=== PATIENT | female | born 1945 | race Caucasian/White ===

== ENCOUNTER → 2016-06-28 | Outpatient (CLI) | payer MEDICARE, OTHER | END | disposition home or self-care (01) | LOC: GMAM 09:57 | PROVIDERS: ATTEND Family Medicine | DX: D64.9 Anemia, unspecified (principal) ==

== ENCOUNTER → 2016-09-26 | Outpatient (CLI) | payer MEDICARE, OTHER | END | disposition home or self-care (01) | LOC: GMAM 10:44 | PROVIDERS: ATTEND Family Medicine | DX: D64.9 Anemia, unspecified (principal); I10 Essential (primary) hypertension ==

== ENCOUNTER → 2016-10-28 | Outpatient (CLI) | payer MEDICARE, OTHER | LOC: GMAM 13:14 | PROVIDERS: ATTEND Family Medicine | DX: E55.9 Vitamin D deficiency, unspecified (principal); M06.9 Rheumatoid arthritis, unspecified ==

== ENCOUNTER → 2016-11-01 | Outpatient (CLI) | payer MEDICARE, OTHER ==
--- NOTE | 2016-11-01 17:14 | US ---
EXAM DESCRIPTION: Thyroid CLINICAL HISTORY: 71 years Female, THYROID NODULE COMPARISON: None. FINDINGS: Right lobe of the thyroid is 4.3 x 1.8 x 1.4 cm and the left lobe is 4.2 x 1.7 x 1.7 cm. The isthmus is 2 mm in thickness. The thyroid gland is heterogeneous bilaterally with numerous small subcentimeter hypoechoic and isoechoic nodules evident. On the right a hypoechoic heterogeneous wider than tall 10 x 7 x 7 mm nodule is present in the upper pole posteriorly. An isoechoic wider than tall adjacent nodule anteriorly that is mildly heterogeneous measures 8 x 8 x 6 mm. Numerous smaller nodules are present and too small to fully characterize. On the left, a hypoechoic heterogeneous wider than tall 1.1 x 0.8 x 0.7 cm nodule is present posteriorly in the mid thyroid. Just inferior to this nodule is a wider than tall oval 1.0 x 0.7 x 0.6 cm heterogeneous nodule. Again numerous smaller subcentimeter nodules are scattered within the left lobe. The more superior lesion measuring 1.1 cm in maximal diameter demonstrates several punctate echogenic foci that may represent early microcalcifications. Fine-needle aspiration of this lesion should be considered. IMPRESSION: 1. The nodular gland with innumerable smaller less than 1 cm nodules with two dominant nodules in each lobe, in the upper pole on the right in the posterior mid pole on the left. 2. The most suspicious nodule is 1.1 cm in maximal length posteriorly in the left lobe with questionable small microcalcifications within the lesion. Fine-needle aspiration of this lesion should be considered. Electronically signed by: Guero Mendoza MD 11/01/2016 5:13 PM CDT
== END | disposition home or self-care (01) ==
LOC: US 09:18
PROVIDERS: ATTEND Family Medicine
DX: E04.1 Nontoxic single thyroid nodule (principal)

== ENCOUNTER → 2016-11-03 | Outpatient (CLI) | payer MEDICARE, OTHER | END | disposition home or self-care (01) | LOC: GMAM 14:17 | PROVIDERS: ATTEND Family Medicine | DX: R74.8 Abnormal levels of other serum enzymes (principal); R79.9 Abnormal finding of blood chemistry, unspecified; E04.8 Other specified nontoxic goiter; R22.9 Localized swelling, mass and lump, unspecified ==

== ENCOUNTER 2017-02-01 15:01 | Emergency (ER) | payer MEDICARE, OTHER ==
[~2017-02-01 15:01] MED LIST: LIDOCAINE 1% 10 ML VIAL INJ ONE; PROPOFOL 200 MG/20 ML VIAL IV ONE
--- NOTE | 2017-02-01 17:12 | ED.PDOC ---
History of Present Illness - General Chief Complaint: Lower Extremity Injury Stated Complaint: right hip pain Time Seen by Provider: 02/01/17 17:11 Source: patient Exam Limitations: no limitations - History of Present Illness Initial Comments: Cathi Osborn 71 y/o female stated that she had had right [place] 1 [place] and had been popping out of place several times sometimes she is able to put it back but today could not put back in place.No history of fall. Occurred: this afternoon Pain - Lower Extremity: moderate: Right Thigh/Hip Method of Injury: other - no injury Improving Factors: nothing Worsening Factors: nothing Allergies/Adverse Reactions: Allergies NO KNOWN ALLERGY Allergy (Verified 02/01/17 15:43) Home Medications: Ambulatory Orders Albuterol Sulfate Nebs [Proventil Nebs] 2.5 mg INH QID 03/21/15 Albuterol Sulfate [Proair Hfa] 2 inh IN QID 03/21/15 Aspirin [Aspirin Adult Low Dose] 81 mg PO .,,SA 03/21/15 Calcium Carbonate-Cholecalcife [Calcium 600+D3 600-800 mg-Unit] 1 tab PO BID Celecoxib 200 mg PO BID 03/21/15 Cholecalciferol [Vitamin D3] 1,000 unit PO BID 03/21/15 DULoxetine HCL [Cymbalta] 30 mg PO DAILY 03/21/15 Diclofenac Sodium (Topical) [Diclofenac Sodium] 2 - 4 ml TD QID 03/21/15 Fluticasone/Salmeterol 250/50 [Advair Diskus] 1 puff INH BID 03/21/15 Folic Acid,B6,B12 [FOLTX] 1 ea PO BID 03/21/15 HYDROcodone 10MG/APAP 325MG [[place] 10/325] 1 tab PO Q4H PRN 03/21/15 Hydroxychloroquine [Plaquenil] 200 mg PO BID 03/21/15 Leflunomide 10 mg PO DAILY 03/21/15 Lidocaine 5 % EX QID 03/21/15 Lubiprostone [Amitiza] 8 mcg PO BID 03/21/15 Wrens-3 Fatty Acids [Fish Oil] 1,200 mg PO BID 03/21/15 Omeprazole 20 mg PO BID 03/21/15 Prednisone 5 mg PO DAILY 03/21/15 Telmisartan [Micardis] 20 mg PO .M,W,F 03/21/15 Acetaminophen W/ Codeine [Tylenol w/Codeine 300-30 mg] 1 - 2 tab PO Q6HR PRN # 30 tab 10/26/15 Review of Systems - Review of Systems Constitutional: States: no symptoms reported EENTM: States: no symptoms reported Respiratory: States: no symptoms reported Cardiology: States: no symptoms reported Gastrointestinal/Abdominal: States: no symptoms reported Genitourinary: States: no symptoms reported Musculoskeletal: States: see HPI Skin: States: no symptoms reported Neurological: States: no symptoms reported Past Medical History (General) - Patient Medical History Hx Seizures: No Hx Stroke: No Hx Dementia: No Hx Asthma: Yes Hx of COPD: No Hx Cardiac Disorders: No Hx Congestive Heart Failure: No Hx Pacemaker: No Hx Hypertension: Yes Hx Thyroid Disease: No Hx Diabetes: No Hx Gastroesophageal Reflux: Yes Hx Renal Disease: No Hx Cancer: No Hx of HIV: No Hx Hepatitis C: No Hx MRSA: No Surgical History: appendectomy, other - right hip,hysterectomy - Vaccination History Hx Tetanus, Diphtheria Vaccination: No Hx Influenza Vaccination: Yes Hx Pneumococcal Vaccination: Yes - Social History Hx Tobacco Use: No Hx Chewing Tobacco Use: No Hx Alcohol Use: Yes - occasional Hx Substance Use: No Hx Substance Use Treatment: No Hx Depression: No Hx Physical Abuse: No Hx Emotional Abuse: No Hx Suspected Abuse: No - Female History Patient is a Female of Child Bearing Age (10 -59 yrs old): No Patient : No Family Medical History - Family History Mother Family History: Unknown Living Status: Unknown Physical Exam - Physical Exam General Appearance: Alert, Anxious, No apparent distress Eyes, Ears, Nose, Throat: PERRL/EOMI, normal ENT inspection Neck: non-tender, supple Cardiovascular/Respiratory: regular rate, rhythm, no M/R/G, normal peripheral pulses Gastrointestinal/Abdominal: non-tender, no organomegaly Back: normal inspection, no CVA tenderness, no vertebral tenderness Thigh/Hip: soft tissue tenderness - right hip Leg: normal inspection, no evidence of injury Knee: normal inspection, no evidence of injury Ankle: normal inspection, no evidence of injury Foot: normal inspection, no evidence of injury Neuro/Tendon: normal sensation, normal motor functions, other - vascular intact dorsalis pedis bilaterally Mental Status: alert, oriented x 3 Skin: normal color, warm/dry Progress - Progress Progress: 02/01/17 20:51 Last Vital Signs Temp 98.3 F 02/01/17 18:01 Pulse 70 02/01/17 18:01 Resp 20 02/01/17 18:01 BP 124/61 02/01/17 18:01 Pulse Ox 97 02/01/17 18:01 - EKG/XRAY/CT XRAY: hip - dislocated hip prosthesis Procedures - Joint Reduction hip Conscious Sedation: Yes - done by [employer] ENGINEER Reduction Attempts: 3 Pre-Procedure NV Exam: Yes - neurovascular intact Post Joint Reduction Film: joint reduced Departure - Departure Clinical Impression: Pain of right hip joint Dislocation of hip prosthesis Qualifiers: Encounter type: initial encounter Qualified Code(s): T84.029A - Dislocation of unspecified internal joint prosthesis, initial encounter; Z96.649 - Presence of unspecified artificial hip joint Time of Disposition: 20:56 Disposition: Discharge to Home or Self Care Condition: Good Departure Forms: ED Discharge - Pt. Copy, Patient Portal Self Enrollment Referrals: Guero Chandra MD [Primary Care Provider] - 1-2 Weeks Home Medications: Ambulatory Orders Albuterol Sulfate Nebs [Proventil Nebs] 2.5 mg INH QID 03/21/15 Albuterol Sulfate [Proair Hfa] 2 inh IN QID 03/21/15 Aspirin [Aspirin Adult Low Dose] 81 mg PO .,,SA 03/21/15 Calcium Carbonate-Cholecalcife [Calcium 600+D3 600-800 mg-Unit] 1 tab PO BID Celecoxib 200 mg PO BID 03/21/15 Cholecalciferol [Vitamin D3] 1,000 unit PO BID 03/21/15 DULoxetine HCL [Cymbalta] 30 mg PO DAILY 03/21/15 Diclofenac Sodium (Topical) [Diclofenac Sodium] 2 - 4 ml TD QID 03/21/15 Fluticasone/Salmeterol 250/50 [Advair Diskus] 1 puff INH BID 03/21/15 Folic Acid,B6,B12 [FOLTX] 1 ea PO BID 03/21/15 HYDROcodone 10MG/APAP 325MG [[place] 10/325] 1 tab PO Q4H PRN 03/21/15 Hydroxychloroquine [Plaquenil] 200 mg PO BID 03/21/15 Leflunomide 10 mg PO DAILY 03/21/15 Lidocaine 5 % EX QID 03/21/15 Lubiprostone [Amitiza] 8 mcg PO BID 03/21/15 Wrens-3 Fatty Acids [Fish Oil] 1,200 mg PO BID 03/21/15 Omeprazole 20 mg PO BID 03/21/15 Prednisone 5 mg PO DAILY 03/21/15 Telmisartan [Micardis] 20 mg PO .M,W,F 03/21/15 Acetaminophen W/ Codeine [Tylenol w/Codeine 300-30 mg] 1 - 2 tab PO Q6HR PRN # 30 tab 10/26/15 Additional Instructions: FOLLOW UP WITH ORTHOPEDIST in [place]
[2017-02-01 18:14] VITALS: TEMP 98.3
--- NOTE | 2017-02-01 18:23 | RAD ---
EXAM DESCRIPTION: Pelvis,2 or More Views CLINICAL HISTORY: pain/unable to ambulate COMPARISON: None FINDINGS: 2 views were submitted. Prosthetic right hip is present. There is a right hip dislocation. Spinal surgical hardware appears intact. There is a probable comminuted fracture of the left superior pubic ramus but it is not particularly well seen. IMPRESSION: Right prosthetic hip dislocation. Left superior pubic ramus probable comminuted fracture. Electronically signed by: Matthew Rowland 02/01/2017 6:21 PM [facility]
[2017-02-01] MEDS ORDERED: fentaNYL CITRATE INJ 50 MCG/ML AMP ONE (19:33)
[2017-02-01] MEDS ORDERED: fentaNYL CITRATE INJ 50 MCG/ML AMP IV ONE (19:37)
--- NOTE | 2017-02-01 20:28 | RAD ---
EXAM DESCRIPTION: Hip,Right 2 Views CLINICAL HISTORY: 71 years Female post reduction COMPARISON: 02/01/2017. TECHNIQUE: RIGHT hip, two views FINDINGS: There is persistent dislocation of the right hip prosthesis with superior and lateral displacement of the femoral component. IMPRESSION: Persistent dislocation of the right hip prosthesis Electronically signed by: Marii Medel 02/01/2017 8:26 PM [facility]
--- NOTE | 2017-02-01 20:44 | RAD ---
EXAM DESCRIPTION: Hip,Right 2 Views CLINICAL HISTORY: 71 years Female post reduction COMPARISON: Films earlier the same day. TECHNIQUE: RIGHT hip, two views FINDINGS: There has been interval relocation of the right hip prosthesis. There is anatomic alignment in the frog leg and AP views. Heterotopic bone formation along the hip. No evidence of fracture. IMPRESSION: Interval relocation of the right hip prosthesis Electronically signed by: Marii Medel 02/01/2017 8:43 PM [facility]
[2017-02-01 21:28] VITALS: BP 129/71; O2SAT 98
== END 2017-02-01 21:28 | disposition home or self-care (01) ==
LOC: ER 15:01
DX: T84.020A Dislocation of internal right hip prosthesis, initial encounter (principal); I10 Essential (primary) hypertension; K21.9 Gastro-esophageal reflux disease without esophagitis; Z79.82 Long term (current) use of aspirin; Z79.899 Other long term (current) drug therapy
CPT/HCPCS: 72190; 73502; 99156; J3010; J3490

== ENCOUNTER 2017-05-14 18:39 | Emergency (ER) | payer MEDICARE, OTHER ==
[2017-05-14] MEDS ORDERED: SODIUM CHLORIDE 0.9% 1000ML 1,000 ML ONE (19:18)
--- NOTE | 2017-05-14 19:24 | RAD ---
EXAM DESCRIPTION: Hip,Right 2 Views CLINICAL HISTORY: 71 years Female pain COMPARISON: 02/01/2017. TECHNIQUE: RIGHT hip, two views FINDINGS: Total hip prosthesis on the right. There is dislocation of the femoral component from the acetabular component. Femoral component is displaced laterally and superiorly. No obvious fracture is noted on the images provided. Exam is limited by body habitus. IMPRESSION: Dislocation of the hip prosthesis Electronically signed by: Marii Medel MD 05/14/2017 7:21 PM CDT
--- NOTE | 2017-05-14 19:33 | ED.PDOC ---
History of Present Illness - General Chief Complaint: Lower Extremity Injury Stated Complaint: hip pain Time Seen by Provider: 05/14/17 18:56 Source: patient Exam Limitations: no limitations Additional Information: PT STATES HER HIP HAS DISLOCATED. HAS HAPPENED BEFORE. THINKS SHE "TWISTED WRONG " WHILE TAKING OUT THE TRASH. C/O PAIN AND DEFORMITY TO R HIP. - History of Present Illness Occurred: just prior to arrival Pain - Lower Extremity: moderate: Right Thigh/Hip Improving Factors: nothing Worsening Factors: movement Associated Symptoms: DID NOT FALL, NO C/O OF INJURY OR LOC. Allergies/Adverse Reactions: Allergies NO KNOWN ALLERGY Allergy (Verified 05/14/17 18:51) Home Medications: Ambulatory Orders Albuterol Sulfate Nebs [Proventil Nebs] 2.5 mg INH QID 03/21/15 Albuterol Sulfate [Proair Hfa] 2 inh IN QID 03/21/15 Aspirin [Aspirin Adult Low Dose] 81 mg PO .,,SA 03/21/15 Calcium Carbonate-Cholecalcife [Calcium 600+D3 600-800 mg-Unit] 1 tab PO BID Celecoxib 200 mg PO BID 03/21/15 Cholecalciferol [Vitamin D3] 1,000 unit PO BID 03/21/15 DULoxetine HCL [Cymbalta] 30 mg PO DAILY 03/21/15 Diclofenac Sodium (Topical) [Diclofenac Sodium] 2 - 4 ml TD QID 03/21/15 Fluticasone/Salmeterol 250/50 [Advair Diskus] 1 puff INH BID 03/21/15 Folic Acid,B6,B12 [FOLTX] 1 ea PO BID 03/21/15 HYDROcodone 10MG/APAP 325MG [[place] 10/325] 1 tab PO Q4H PRN 03/21/15 Hydroxychloroquine [Plaquenil] 200 mg PO BID 03/21/15 Leflunomide 10 mg PO DAILY 03/21/15 Lidocaine 5 % EX QID 03/21/15 Lubiprostone [Amitiza] 8 mcg PO BID 03/21/15 [place]-3 Fatty Acids [Fish Oil] 1,200 mg PO BID 03/21/15 Omeprazole 20 mg PO BID 03/21/15 Prednisone 5 mg PO DAILY 03/21/15 Telmisartan [Micardis] 20 mg PO .M,W,F 03/21/15 Acetaminophen W/ Codeine [Tylenol w/Codeine 300-30 mg] 1 - 2 tab PO Q6HR PRN # 30 tab 10/26/15 Review of Systems - Review of Systems Constitutional: Denies: chills, fever EENTM: States: no symptoms reported Musculoskeletal: States: joint pain Skin: States: no symptoms reported Neurological: States: no symptoms reported Past Medical History (General) - Patient Medical History Hx Seizures: No Hx Stroke: No Hx Dementia: No Hx Asthma: Yes Hx of COPD: No Hx Cardiac Disorders: No Hx Congestive Heart Failure: No Hx Pacemaker: No Hx Hypertension: Yes Hx Thyroid Disease: No Hx Diabetes: No Hx Gastroesophageal Reflux: Yes Hx Renal Disease: No Hx Cancer: No Hx of HIV: No Hx Hepatitis C: No Hx MRSA: No Surgical History: appendectomy, other - Vaccination History Hx Tetanus, Diphtheria Vaccination: No Hx Influenza Vaccination: Yes Hx Pneumococcal Vaccination: Yes - Social History Hx Tobacco Use: No Hx Chewing Tobacco Use: No Hx Alcohol Use: Yes - occasional Hx Substance Use: No Hx Substance Use Treatment: No Hx Depression: No Hx Physical Abuse: No Hx Emotional Abuse: No Hx Suspected Abuse: No - Female History Patient : No Family Medical History - Family History Mother Family History: Unknown Living Status: Unknown Physical Exam - Physical Exam General Appearance: Alert, No apparent distress Eyes, Ears, Nose, Throat: PERRL/EOMI, other - HEAD NC/AT Neck: non-tender, full range of motion, normal inspection Cardiovascular/Respiratory: regular rate, rhythm, no M/R/G Gastrointestinal/Abdominal: non-tender, no organomegaly Back: no CVA tenderness, no vertebral tenderness Thigh/Hip: other - R LEG SHORTENED. NVI, TTP R HIP, Neuro/Tendon: normal sensation, normal motor functions Mental Status: alert, oriented x 3 Skin: normal color Progress - Progress Progress: 05/14/17 19:34 [facility] CALLED FOR CONSCIOUS SEDATION 1914. STATES WILL BE HERE 192905/14/17 20:48 CALLED ORTHO 05/14/17 21:01 D/W DR DUDLEY. OK TO F/U OUTPT CALL DR VILLAREAL IN AM. - EKG/XRAY/CT XRAY: PELVIS: SUCCESSFUL REDUCTION - DISLOCATION Procedures - Joint Reduction right hip Reduction Attempts: 1 Pre-Procedure NV Exam: Yes Post Joint Reduction Film: joint reduced Progress: NVI POST REDUCTION Departure - Departure Clinical Impression: Dislocation, hip closed Qualifiers: Encounter type: initial encounter Laterality: right Qualified Code(s): S73.004A - Unspecified dislocation of right hip, initial encounter Time of Disposition: 21:02 Disposition: Discharge to Home or Self Care Condition: Good Departure Forms: ED Discharge - Pt. Copy, Patient Portal Self Enrollment Instructions: DI for Leg Pain, DI for Hip Dislocation -- Adult Referrals: Guero Chandra MD [Primary Care Provider] - 1-2 Weeks Home Medications: Ambulatory Orders Albuterol Sulfate Nebs [Proventil Nebs] 2.5 mg INH QID 03/21/15 Albuterol Sulfate [Proair Hfa] 2 inh IN QID 03/21/15 Aspirin [Aspirin Adult Low Dose] 81 mg PO .,,SA 03/21/15 Calcium Carbonate-Cholecalcife [Calcium 600+D3 600-800 mg-Unit] 1 tab PO BID Celecoxib 200 mg PO BID 03/21/15 Cholecalciferol [Vitamin D3] 1,000 unit PO BID 03/21/15 DULoxetine HCL [Cymbalta] 30 mg PO DAILY 03/21/15 Diclofenac Sodium (Topical) [Diclofenac Sodium] 2 - 4 ml TD QID 03/21/15 Fluticasone/Salmeterol 250/50 [Advair Diskus] 1 puff INH BID 03/21/15 Folic Acid,B6,B12 [FOLTX] 1 ea PO BID 03/21/15 HYDROcodone 10MG/APAP 325MG [[place] 10/325] 1 tab PO Q4H PRN 03/21/15 Hydroxychloroquine [Plaquenil] 200 mg PO BID 03/21/15 Leflunomide 10 mg PO DAILY 03/21/15 Lidocaine 5 % EX QID 03/21/15 Lubiprostone [Amitiza] 8 mcg PO BID 03/21/15 [place]-3 Fatty Acids [Fish Oil] 1,200 mg PO BID 03/21/15 Omeprazole 20 mg PO BID 03/21/15 Prednisone 5 mg PO DAILY 03/21/15 Telmisartan [Micardis] 20 mg PO .M,W,F 03/21/15 Acetaminophen W/ Codeine [Tylenol w/Codeine 300-30 mg] 1 - 2 tab PO Q6HR PRN # 30 tab 10/26/15
[2017-05-14] MEDS ORDERED: KETAMINE HCL 100 MG/ML VIAL ONE (19:38)
[2017-05-14] MEDS ORDERED: MIDAZOLAM INJ 5 MG/5 ML VIAL ONE (20:04)
--- NOTE | 2017-05-14 20:41 | RAD ---
EXAM DESCRIPTION: Hip,Right 2 Views CLINICAL HISTORY: 71 years Female POST REDUCTION COMPARISON: 05/14/2017. TECHNIQUE: RIGHT hip, two views FINDINGS: There has been interval relocation of the right hip prosthesis. Alignment is anatomic. IMPRESSION: Interval relocation of the right hip prosthesis Electronically signed by: Marii Medel MD 05/14/2017 8:39 PM CDT
--- NOTE | 2017-05-14 20:52 | RAD ---
Pelvis single view on 05/14/2017 CLINICAL INDICATION: Postreduction COMPARISON: Right hip exams from earlier the same day and prior pelvis exam from 02/01/2017 FINDINGS: There has been successful reduction of the prior right hip prosthesis dislocation. The patient is status post a right total hip arthroplasty. Heterotopic ossification is noted adjacent to the right greater trochanter. Extensive postsurgical changes are noted in the lower lumbar spine. The left hip is well located. The SI joints are well aligned. There are no fractures. IMPRESSION: No acute abnormality now noted. Electronically signed by: David Yin 05/14/2017 8:50 PM CDT
[2017-05-14] MEDS ORDERED: GLYCOPYRROLATE 0.2 MG/ML VIAL IV ONE (21:00)
[2017-05-14 21:53] VITALS: BP 101/59; TEMP 98.2; O2SAT 99
== END 2017-05-14 21:52 | disposition home or self-care (01) ==
LOC: ER 18:39
DX: S73.004A Unspecified dislocation of right hip, initial encounter (principal); I10 Essential (primary) hypertension; K21.9 Gastro-esophageal reflux disease without esophagitis; J45.909 Unspecified asthma, uncomplicated; Z79.82 Long term (current) use of aspirin; Z79.899 Other long term (current) drug therapy; X58.XXXA Exposure to other specified factors, initial encounter
CPT/HCPCS: 72170; 73502; 99156; J2250; J7030

== ENCOUNTER → 2017-05-25 | Outpatient (CLI) | payer MEDICARE, OTHER | END | disposition home or self-care (01) | LOC: GMAM 14:13 | PROVIDERS: ATTEND Family Medicine | DX: D64.9 Anemia, unspecified (principal) ==

== ENCOUNTER → 2017-05-31 | Outpatient (CLI) | payer MEDICARE, OTHER ==
--- NOTE | 2017-06-01 07:14 | US ---
EXAM DESCRIPTION: Liver CLINICAL HISTORY: ELEVATED LFTs COMPARISON: None available. FINDINGS: Aorta: Nonaneurysmal. IVC: Visualized portions normal. Ascites: None. Pancreas: Partially obscured by overlying bowel gas but visualized portions normal. Liver: The liver is not enlarged. Physiologic flow is noted in the main portal vein. There is a 3 cm uncomplicated cyst in the left hepatic lobe, but no concerning liver mass is identified. No intrahepatic biliary duct dilation. Gallbladder/Common Duct: No stones, wall thickening, pericholecystic fluid or common duct dilation. Right Kidney: No stones, hydronephrosis, atrophy or mass. IMPRESSION: 3 cm uncomplicated cyst in the left hepatic lobe, no additional abnormality to explain elevated LFTs. Electronically signed by: Nishant Funk MD 06/01/2017 7:13 AM CDT
== END ==
LOC: US 13:24
PROVIDERS: ATTEND Family Medicine
DX: N39.0 Urinary tract infection, site not specified (principal); R94.5 Abnormal results of liver function studies

== ENCOUNTER → 2017-11-21 | Outpatient (CLI) | payer MEDICARE, OTHER | LOC: GMAM 11:01 | PROVIDERS: ATTEND Family Medicine | DX: N39.0 Urinary tract infection, site not specified (principal); D64.9 Anemia, unspecified ==

== ENCOUNTER → 2017-11-28 | Outpatient (CLI) | payer MEDICARE, OTHER | LOC: GMAM 16:36 | PROVIDERS: ATTEND Family Medicine | DX: M06.9 Rheumatoid arthritis, unspecified (principal) ==

== ENCOUNTER 2018-04-16 02:30 | Emergency (ER) | payer MEDICARE, OTHER ==
[2018-04-16 02:49] VITALS: TEMP 97.2
--- NOTE | 2018-04-16 03:38 | RAD ---
CLINICAL HISTORY: possible dislocation, had shoulder replacement COMPARISON: July 20, 2015. TECHNIQUE: XR SHOULDER 2 OR MORE VIEWS 04/16/2018 2:40 AM [facility] FINDINGS: There is no fracture. Total right shoulder arthroplasty was performed. Soft tissues are unremarkable. IMPRESSION: No acute osseous findings. Electronically signed by: Jr Mitchell MD 04/16/2018 3:35 AM [facility]
--- NOTE | 2018-04-16 05:12 | CT ---
EXAM DESCRIPTION: Upper Extremity CLINICAL HISTORY:72 years Female, pain; asymmetry right shoulder Comparison: None TECHNIQUE: Contiguous axial CT images of the right shoulder were obtained. Sagittal and coronal reformats were reviewed. This exam was performed according to our departmental dose-optimization program, which includes automated exposure control, adjustment of the mA and/or kV according to patient size and/or use of iterative reconstruction technique. FINDINGS: Limited exam due to streak artifact from shoulder arthroplasty and patient movement. No obvious fracture or dislocation. Visualized lung almeida are clear. IMPRESSION: No acute osseous abnormalities. Electronically signed by: Richie Summers DO 04/16/2018 5:09 AM [facility]
--- NOTE | 2018-04-16 05:17 | ED.PDOC ---
History of Present Illness - General Chief Complaint: Upper Extremity Injury Stated Complaint: rt shoulder pain Time Seen by Provider: 04/16/18 03:47 Source: patient, RN notes reviewed, Vital Signs reviewed Exam Limitations: no limitations - History of Present Illness Initial Comments: C/O RIGHT SHOULDER PAIN. fIRST NOTED IN THE SHOWER LAST NIGHT A SHARP PAIN. lATER AWOKE & IT Was hurting worse. Her usual ROM was limited due to the pain & the alignment felt abnormal. Of note she had been able to sleep on her right side before awakening. Occurred: this evening Pain - Upper Extremity: mild: Shoulder, right Method of Injury: unknown Improving Factors: rest Worsening Factors: movement Associated Symptoms: none Allergies/Adverse Reactions: Allergies NO KNOWN ALLERGY Allergy (Verified 04/16/18 02:49) Home Medications: Ambulatory Orders Albuterol Sulfate Nebs [Proventil Nebs] 2.5 mg INH QID 03/21/15 Albuterol Sulfate [Proair Hfa] 2 inh IN QID 03/21/15 Aspirin [Aspirin Adult Low Dose] 81 mg PO .,,SA 03/21/15 Calcium Carbonate-Cholecalcife [Calcium 600+D3 600-800 mg-Unit] 1 tab PO BID 03/21/15 Celecoxib 200 mg PO BID 03/21/15 Cholecalciferol [Vitamin D3] 1,000 unit PO BID 03/21/15 DULoxetine HCL [Cymbalta] 30 mg PO DAILY 03/21/15 Diclofenac Sodium (Topical) [Diclofenac Sodium] 2 - 4 ml TD QID 03/21/15 Fluticasone/Salmeterol 250/50 [Advair Diskus] 1 puff INH BID 03/21/15 Folic Acid,B6,B12 [FOLTX] 1 ea PO BID 03/21/15 HYDROcodone 10MG/APAP 325MG [[place] 10/325] 1 tab PO Q4H PRN 03/21/15 Hydroxychloroquine [Plaquenil] 200 mg PO BID 03/21/15 Leflunomide 10 mg PO DAILY 03/21/15 Lidocaine 5 % EX QID 03/21/15 Lubiprostone [Amitiza] 8 mcg PO BID 03/21/15 Traphill-3 Fatty Acids [Fish Oil] 1,200 mg PO BID 03/21/15 Omeprazole 20 mg PO BID 03/21/15 Prednisone 5 mg PO DAILY 03/21/15 Telmisartan [Micardis] 20 mg PO .M,W,F 03/21/15 Acetaminophen W/ Codeine [Tylenol w/Codeine 300-30 mg] 1 - 2 tab PO Q6HR PRN #30 tab 10/26/15 Review of Systems - Review of Systems Constitutional: States: no symptoms reported Respiratory: States: no symptoms reported Cardiology: States: no symptoms reported Gastrointestinal/Abdominal: States: no symptoms reported Musculoskeletal: States: see HPI Skin: States: no symptoms reported Neurological: States: no symptoms reported Past Medical History (General) - Patient Medical History Hx Seizures: No Hx Stroke: No Hx Dementia: No Hx Asthma: Yes Hx of COPD: No Hx Cardiac Disorders: No Hx Congestive Heart Failure: No Hx Pacemaker: No Hx Hypertension: Yes Hx Thyroid Disease: No Hx Diabetes: No Hx Gastroesophageal Reflux: Yes Hx Renal Disease: No Hx Cancer: No Hx of HIV: No Hx Hepatitis C: No Hx MRSA: No Surgical History: other - Vaccination History Hx Tetanus, Diphtheria Vaccination: No Hx Influenza Vaccination: Yes Hx Pneumococcal Vaccination: Yes - Social History Hx Tobacco Use: No Hx Chewing Tobacco Use: No Hx Alcohol Use: Yes - occasional Hx Substance Use: No Hx Substance Use Treatment: No Hx Depression: No Hx Physical Abuse: No Hx Emotional Abuse: No Hx Suspected Abuse: No - Female History Patient : No Family Medical History - Family History Mother Family History: Unknown Living Status: Unknown Physical Exam - Physical Exam General Appearance: Alert, Comfortable, No apparent distress Neck: full range of motion, supple, normal inspection Cardiovascular/Respiratory: no respiratory distress Back Exam: normal inspection, no vertebral tenderness Shoulder Exam: limited ROM, soft tissue tenderness, swelling - the right shoulder has anterior fullness that is slightly tender. She was noted to push up on the bed using her right arm. She has limited ROM but some is present in all spheres. Elbow/Forearm Exam: normal inspection, non-tender, no evidence of injury, normal ROM Wrist Exam: normal inspection, no evidence of injury, normal ROM Neuro/Tendon: normal sensation, normal motor functions, normal tendon functions, responds to pain Mental Status: alert, oriented x 3 Skin Exam: normal color, warm/dry Progress - Progress Progress: 04/16/18 05:22 Unchanged ASSESSMENT: 72 yo female with a h/o of total right shoulder replacement presents with right shoulder pain, painful ROM & feeling of misalignment. Her exam showed asymmetry & limited ROM due to pain. Her XR & CT were nml. She has an orthopedist to f/u with. Of note, she has been on Cipro recently (discontinued) & has a remote h/o fluoroquinolone induced tendon rupture in her foot. I see no evidence of tendon rupture but have offered a sling which she declines. PLAN: 1. Discharge 2. Ortho f/u tomorrow. 3. Precautions re: potential for tendonopathy - EKG/XRAY/CT XRAY: right shoulder nml CT Ordered: Yes - no acute findings Departure - Departure Clinical Impression: Shoulder pain, right Qualifiers: Chronicity: acute Qualified Code(s): M25.511 - Pain in right shoulder Time of Disposition: 05:26 Disposition: Discharge to Home or Self Care Condition: Good Departure Forms: ED Discharge - Pt. Copy, Patient Portal Self Enrollment Referrals: Guero Chandra MD [Primary Care Provider] - 1-2 Days (call your orthopedist later today) Home Medications: Ambulatory Orders Albuterol Sulfate Nebs [Proventil Nebs] 2.5 mg INH QID 03/21/15 Albuterol Sulfate [Proair Hfa] 2 inh IN QID 03/21/15 Aspirin [Aspirin Adult Low Dose] 81 mg PO .,03/21/15 Calcium Carbonate-Cholecalcife [Calcium 600+D3 600-800 mg-Unit] 1 tab PO BID 03/21/15 Celecoxib 200 mg PO BID 03/21/15 Cholecalciferol [Vitamin D3] 1,000 unit PO BID 03/21/15 DULoxetine HCL [Cymbalta] 30 mg PO DAILY 03/21/15 Diclofenac Sodium (Topical) [Diclofenac Sodium] 2 - 4 ml TD QID 03/21/15 Fluticasone/Salmeterol 250/50 [Advair Diskus] 1 puff INH BID 03/21/15 Folic Acid,B6,B12 [FOLTX] 1 ea PO BID 03/21/15 HYDROcodone 10MG/APAP 325MG [[place] 10/325] 1 tab PO Q4H PRN 03/21/15 Hydroxychloroquine [Plaquenil] 200 mg PO BID 03/21/15 Leflunomide 10 mg PO DAILY 03/21/15 Lidocaine 5 % EX QID 03/21/15 Lubiprostone [Amitiza] 8 mcg PO BID 03/21/15 Traphill-3 Fatty Acids [Fish Oil] 1,200 mg PO BID 03/21/15 Omeprazole 20 mg PO BID 03/21/15 Prednisone 5 mg PO DAILY 03/21/15 Telmisartan [Micardis] 20 mg PO .M,W,F 03/21/15 Acetaminophen W/ Codeine [Tylenol w/Codeine 300-30 mg] 1 - 2 tab PO Q6HR PRN #30 tab 10/26/15
[2018-04-16 05:48] VITALS: BP 142/86; O2SAT 97
== END 2018-04-16 05:48 | disposition home or self-care (01) ==
LOC: ER 02:30
DX: M25.511 Pain in right shoulder (principal); Z96.611 Presence of right artificial shoulder joint; I10 Essential (primary) hypertension; J45.909 Unspecified asthma, uncomplicated; K21.9 Gastro-esophageal reflux disease without esophagitis; Z79.899 Other long term (current) drug therapy; Z79.82 Long term (current) use of aspirin

== ENCOUNTER → 2018-04-25 | Outpatient (CLI) | payer MEDICARE, OTHER ==
--- NOTE | 2018-04-25 15:41 | US ---
EXAM DESCRIPTION: Soft Tissue,Extremity: ULTRASOUND. CLINICAL HISTORY: 72 years Female RT SHOULDER PAIN M25.511 COMPARISON: None Available. TECHNIQUE: Transcutaneous scanning: Almanzar-scale and Doppler modes. FINDINGS: Mixed echogenic mass in the anterior right shoulder. This is between the muscle and the subcutaneous fascia and contains septations. Minimal vascularity on the inferior aspect. Dimensions are 6.8 x 1.4 x 3.9 cm. Surrounded by parenchymal edema and also parenchymal edema in the subcutaneous adipose tissue. No dominant fluid collection or large calcifications.. IMPRESSION: Most likely hematoma in the tissue layer between the subcutaneous fascia and the muscle. Maximum dimensions 6.8 cm. Minimal vascularity on the inferior aspect. No large fluid collection. Electronically signed by: Matthew Cervantes MD 04/25/2018 3:38 PM [employer]
== END ==
LOC: US 11:12
PROVIDERS: ATTEND Physician Assistant
DX: M25.519 Pain in unspecified shoulder (principal); M79.89 Other specified soft tissue disorders

== ENCOUNTER → 2018-09-12 | Outpatient (CLI) | payer MEDICARE, OTHER | LOC: GMAM 14:18 | PROVIDERS: ATTEND Family Medicine | DX: E53.8 Deficiency of other specified B group vitamins (principal); E04.1 Nontoxic single thyroid nodule; I10 Essential (primary) hypertension ==

== ENCOUNTER → 2018-09-26 | Outpatient (CLI) | payer MEDICARE, OTHER | LOC: GMAM 14:47 | PROVIDERS: ATTEND Family Medicine | DX: E83.52 Hypercalcemia (principal); J45.20 Mild intermittent asthma, uncomplicated ==

== ENCOUNTER → 2018-11-20 | Outpatient (CLI) | payer MEDICARE, OTHER ==
--- NOTE | 2018-11-22 07:05 | MRI ---
Study: MRI left wrist. Indication: LEFT WRIST PAIN Technique: Multiplanar, multi sequence MRI of the left wrist obtained without intravenous contrast. Comparison: None. 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 Moderate size joint effusion with 7 mm loose body along the ulnar joint line. Mild osteoarthritis STT joint, scapholunate joint, distal radioulnar joint. Tiny radiocarpal, midcarpal, and distal radioulnar joint effusions. Scapholunate ligament ill-defined with suspected partial-thickness tearing. Scapholunate interval measures 3 mm. Lunotriquetral ligament intact. Central substance TFC is thin with degenerative signal but without full-thickness tear. Ulnar variance neutral. Type II lunate. No acute fracture. Tenosynovitis of the first extensor tendon compartment suspected with mild ganglionic like formation adjacent to the first CMC joint. No appreciable tendon tear. Median nerve, ulnar nerve are unremarkable. Impression: Scattered osteoarthritic changes of the wrist, most pronounced at the first CMC joint where there are severe changes as detailed above. Partial-thickness tearing scapholunate ligament. Attenuation and degenerative signal TFC. Tenosynovitis tendons of the first extensor tendon compartment. Additional findings as above. Electronically signed by: Arya Boggs MD 11/22/2018 7:03 AM CDT
== END ==
LOC: MRI 14:00
PROVIDERS: ATTEND Family Medicine
DX: M19.032 Primary osteoarthritis, left wrist (principal); S63.512A Sprain of carpal joint of left wrist, initial encounter; M65.832 Other synovitis and tenosynovitis, left forearm

== ENCOUNTER 2019-08-10 17:08 | Emergency (ER) | payer MEDICARE, OTHER ==
--- NOTE | 2019-08-10 17:41 | ED.PDOC ---
History of Present Illness - General Chief Complaint: Upper Extremity Injury Stated Complaint: right shoulder dislocation Time Seen by Provider: 08/10/19 17:34 Source: patient, RN notes reviewed, Vital Signs reviewed, family Exam Limitations: no limitations - History of Present Illness Initial Comments: Patient is a 73-year-old female who presents for right shoulder pain. States she had her right shoulder replaced 6 or 7 years ago. Over the past 2 years her right shoulder dislocates several times a month and she is able to put it back in by leaning forward and hanging her arm in front of her. Today about 1 PM she felt like her right shoulder dislocated and has not been able to get it back in place. Denies any fall or trauma or other injuries. Allergies/Adverse Reactions: Allergies NO KNOWN ALLERGY Allergy (Verified 04/16/18 02:49) Home Medications: Ambulatory Orders Albuterol Sulfate Nebs [Proventil Nebs] 2.5 mg INH QID 03/21/15 Albuterol Sulfate [Proair Hfa] 2 inh IN QID 03/21/15 Aspirin [Aspirin Adult Low Dose] 81 mg PO .,,SA 03/21/15 Calcium Carbonate-Cholecalcife [Calcium 600+D3 600-800 mg-Unit] 1 tab PO BID 03/21/15 Celecoxib 200 mg PO BID 03/21/15 Cholecalciferol [Vitamin D3] 1,000 unit PO BID 03/21/15 DULoxetine HCL [Cymbalta] 30 mg PO DAILY 03/21/15 Diclofenac Sodium (Topical) [Diclofenac Sodium] 2 - 4 ml TD QID 03/21/15 Fluticasone/Salmeterol 250/50 [Advair Diskus] 1 puff INH BID 03/21/15 Folic Acid,B6,B12 [FOLTX] 1 ea PO BID 03/21/15 HYDROcodone 10MG/APAP 325MG [[place] 10/325] 1 tab PO Q4H PRN 03/21/15 Hydroxychloroquine [Plaquenil] 200 mg PO BID 03/21/15 Leflunomide 10 mg PO DAILY 03/21/15 Lidocaine 5 % EX QID 03/21/15 Lubiprostone [Amitiza] 8 mcg PO BID 03/21/15 [place]-3 Fatty Acids [Fish Oil] 1,200 mg PO BID 03/21/15 Omeprazole 20 mg PO BID 03/21/15 Prednisone 5 mg PO DAILY 03/21/15 Telmisartan [Micardis] 20 mg PO .M,W,F 03/21/15 Acetaminophen W/ Codeine [Tylenol w/Codeine 300-30 mg] 1 - 2 tab PO Q6HR PRN #30 tab 10/26/15 Review of Systems - Review of Systems Constitutional: Denies: chills, fever, weakness EENTM: Denies: throat pain Respiratory: Denies: cough, short of breath Cardiology: Denies: chest pain, palpitations, syncope Gastrointestinal/Abdominal: Denies: abdominal pain, nausea, vomiting Genitourinary: States: no symptoms reported Musculoskeletal: States: see HPI. Denies: back pain, neck pain All other Systems: Reviewed and Negative Past Medical History (General) - Patient Medical History Hx Seizures: No Hx Stroke: No Hx Dementia: No Hx Asthma: Yes Hx of COPD: No Hx Cardiac Disorders: No Hx Congestive Heart Failure: No Hx Pacemaker: No Hx Hypertension: Yes Hx Thyroid Disease: No Hx Diabetes: No Hx Gastroesophageal Reflux: Yes Hx Renal Disease: No Hx Cancer: No Hx of HIV: No Hx Hepatitis C: No Hx MRSA: No - Vaccination History Hx Tetanus, Diphtheria Vaccination: No Hx Influenza Vaccination: Yes Hx Pneumococcal Vaccination: Yes - Social History Hx Tobacco Use: No Hx Chewing Tobacco Use: No Hx Alcohol Use: Yes - occasional Hx Substance Use: No Hx Substance Use Treatment: No Hx Depression: No Hx Physical Abuse: No Hx Emotional Abuse: No Hx Suspected Abuse: No - Female History Patient : No Family Medical History - Family History Mother Family History: Unknown Living Status: Unknown Physical Exam - Physical Exam General Appearance: Alert, No apparent distress Neck: non-tender, full range of motion, supple Cardiovascular/Respiratory: regular rate, rhythm, normal breath sounds, no respiratory distress Back Exam: normal inspection, no vertebral tenderness Comments: Patient is diffusely tender to palpation to the right shoulder. There is no glenohumeral humeral step-off. She has 2+ radial pulse and sensations intact to light touch. Abducting greater than 25 degrees causes increased pain to the right shoulder. Progress - Progress Progress: 08/10/19 19:54 Attempted having patient lie on stomach and hold RUE of the bed, but did not reduce. Attempted manual reduction without sedation unsuccessfully. Discussed with patient options and she agrees with moderate sedation for reduction. 08/10/19 23:41 Multiple attempts were made to obtain IV causing delay in sedation. While patient was waiting, she fell asleep and when she awoke she stated shoulder was back in posistion. I re examined, and pateint has FROM in right shoulder. Denies pain. 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 Pt requesting to go home. I have recommended repeat xray to ensure reduction, but pt declines and requests to be discharged home. She has an orthopedist and I have recommended she f/u with him for recheck in 1-2 days. I have given SRP to return to ED. - Results/Orders Results/Orders: Right shoulder EXAM: XR Right Shoulder Complete, 2 or More Views CLINICAL HISTORY: The patient is 73 years old and is Female; pain TECHNIQUE: Two views of the right shoulder. COMPARISON: April 16, 2018. FINDINGS: Bones/joints: Suspect posterior dislocation, right reverse shoulder arthroplasty hardware. No acute fracture. Soft tissues: Unremarkable. Lungs: Visualized right lung is clear. IMPRESSION: Suspect posterior dislocation, right reverse shoulder arthroplasty hardware. Y view recommended. Pt declined repeat xray post reduction Departure - Departure Clinical Impression: Recurrent dislocation, right shoulder Time of Disposition: 23:40 Disposition: Discharge to Home or Self Care Condition: Good Departure Forms: ED Discharge - Pt. Copy, Patient Portal Self Enrollment Instructions: Shoulder Instability (DC) Diet: resume usual diet Activity: increase activity as tolerated Referrals: Guero Chandra MD [Primary Care Provider] - 1-2 Weeks Home Medications: Ambulatory Orders Albuterol Sulfate Nebs [Proventil Nebs] 2.5 mg INH QID 03/21/15 Albuterol Sulfate [Proair Hfa] 2 inh IN QID 03/21/15 Aspirin [Aspirin Adult Low Dose] 81 mg PO .,,03/21/15 Calcium Carbonate-Cholecalcife [Calcium 600+D3 600-800 mg-Unit] 1 tab PO BID 03/21/15 Celecoxib 200 mg PO BID 03/21/15 Cholecalciferol [Vitamin D3] 1,000 unit PO BID 03/21/15 DULoxetine HCL [Cymbalta] 30 mg PO DAILY 03/21/15 Diclofenac Sodium (Topical) [Diclofenac Sodium] 2 - 4 ml TD QID 03/21/15 Fluticasone/Salmeterol 250/50 [Advair Diskus] 1 puff INH BID 03/21/15 Folic Acid,B6,B12 [FOLTX] 1 ea PO BID 03/21/15 HYDROcodone 10MG/APAP 325MG [[place] 10325] 1 tab PO Q4H PRN 03/21/15 Hydroxychloroquine [Plaquenil] 200 mg PO BID 03/21/15 Leflunomide 10 mg PO DAILY 03/21/15 Lidocaine 5 % EX QID 03/21/15 Lubiprostone [Amitiza] 8 mcg PO BID 03/21/15 [place]-3 Fatty Acids [Fish Oil] 1,200 mg PO BID 03/21/15 Omeprazole 20 mg PO BID 03/21/15 Prednisone 5 mg PO DAILY 03/21/15 Telmisartan [Micardis] 20 mg PO .M,W,F 03/21/15 Acetaminophen W/ Codeine [Tylenol w/Codeine 300-30 mg] 1 - 2 tab PO Q6HR PRN #30 tab 10/26/15
--- NOTE | 2019-08-10 18:17 | RAD ---
EXAM: XR Right Shoulder Complete, 2 or More Views CLINICAL HISTORY: The patient is 73 years old and is Female; pain TECHNIQUE: Two views of the right shoulder. COMPARISON: April 16, 2018. FINDINGS: Bones/joints: Suspect posterior dislocation, right reverse shoulder arthroplasty hardware. No acute fracture. Soft tissues: Unremarkable. Lungs: Visualized right lung is clear. IMPRESSION: Suspect posterior dislocation, right reverse shoulder arthroplasty hardware. Y view recommended. Electronically signed by: Ro Verduzco MD 08/10/2019 6:15 PM CDT
[2019-08-10] MEDS ORDERED: ETOMIDATE INJECTION 2 MG/ML 20ML VIAL IV ONE (19:48)
[2019-08-10] MEDS ORDERED: fentaNYL CITRATE INJ 50 MCG/ML 2 ML AMP IV ONE (19:52)
--- NOTE | 2019-08-10 19:54 | RAD ---
EXAM: XR Right Shoulder, 1 View CLINICAL HISTORY: The patient is 73 years old and is Female; dislocation TECHNIQUE: Single Y view of the right shoulder. COMPARISON: X-ray right shoulder two view August 09, 2025. FINDINGS: Bones/joints: Posterior dislocation, right shoulder reverse arthroplasty hardware. No acute fracture. Soft tissues: Unremarkable. IMPRESSION: Posterior dislocation, right shoulder reverse arthroplasty hardware. Electronically signed by: Ro Verduzco MD 08/10/2019 7:53 PM CDT
[2019-08-10] MEDS ORDERED: SODIUM CHLORIDE 0.9% 500ML 500 ML IVS PRN (21:03)
[2019-08-10] MEDS ORDERED: KETAMINE HCL 100 MG/ML VIAL IM ONE (22:17)
[2019-08-10 23:45] VITALS: BP 171/94; TEMP 97.9; O2SAT 95
== END 2019-08-10 23:57 | disposition home or self-care (01) ==
LOC: ER 17:08
DX: M24.411 Recurrent dislocation, right shoulder (principal); I10 Essential (primary) hypertension; X58.XXXA Exposure to other specified factors, initial encounter; Y92.9 Unspecified place or not applicable

== ENCOUNTER → 2019-09-23 | Outpatient (CLI) | payer MEDICARE, OTHER | LOC: GMAM 10:46 | PROVIDERS: ATTEND Family Medicine | DX: E53.8 Deficiency of other specified B group vitamins (principal); E55.9 Vitamin D deficiency, unspecified; E78.2 Mixed hyperlipidemia; E04.1 Nontoxic single thyroid nodule; D64.9 Anemia, unspecified; I10 Essential (primary) hypertension ==

== ENCOUNTER → 2019-12-16 | Outpatient (CLI) | payer MEDICARE, OTHER | LOC: GMAM 10:51 | PROVIDERS: ATTEND Family Medicine | DX: M05.59 Rheumatoid polyneuropathy with rheumatoid arthritis of multiple sites (principal); Z79.899 Other long term (current) drug therapy ==